=== PATIENT | male | born 1970 | race American Indian/Alaskan Native ===

== ENCOUNTER 2017-06-26 14:15 | Emergency (ER) | payer SELFPAY ==
[2017-06-26 14:30] VITALS: BP 133/87
[2017-06-26 15:05] LABS: Basophils % (Auto) 0.3 % (0.0-1.8); Eosinophils % (Auto) 4.9 % (0.0-4.3); Hematocrit 39.1 % (35.5-45.6); Hemoglobin 13.2 gm/dl (11.8-15.2); Mean Corpuscular HGB Conc 34 % (32-34); Mean Corpuscular Hemoglobin 29 pg (28-32); Mean Corpuscular Volume 85 fl (84-94); Platelet Count 346 K/mm3 (140-440); Red Blood Count 4.59 M/mm3 (3.65-5.03); White Blood Count 8.9 K/mm3 (4.5-11.0)
[2017-06-26 15:52] LABS: Alanine Aminotransferase 14 units/L (7-56); Albumin 3.9 g/dL (3.9-5); Albumin/Globulin Ratio 1.3 %; Alkaline Phosphatase 40 units/L (35-129); Anion Gap 15 mmol/L; BUN/Creatinine Ratio 13; Blood Urea Nitrogen 10 mg/dL (9-20); Carbon Dioxide 26 mmol/L (22-30); Chloride 102.6 mmol/L (98-107); Glucose 96 mg/dL (75-100); Lipase 32 units/L (13-60); Potassium 3.8 mmol/L (3.6-5.0); Sodium 140 mmol/L (137-145); Total Protein 6.9 g/dL (6.3-8.2)
--- NOTE | 2017-06-26 15:55 | Ultrasound Report ---
Testicular sonogram: History: Right Testicular pain. Findings: Right testis measures 4.9 x 2.4 x 2.9 cm. Uniform echogenicity with normal color flow. There is a cyst identified in the epididymis measuring 0.5 x 0.5 x 0.5 cm. Mild to moderate hydrocele. Left testes measures 4.5 x 2.2 x 2.9 cm. Uniform echogenicity with normal color flow. Normal epididymis. No mass. Moderate hydrocele. Impression: Cyst of the head of the right epididymis. Bilateral hydrocele.
[2017-06-26 16:57] LABS: Bilirubin,Urine NEG (Negative); Blood,Urine NEG (Negative); Ketones,Urine NEG (Negative); Leukocyte Esterase,Urine NEG (Negative); Mucus,Urine FEW /HPF; Nitrite,Urine NEG (Negative); Protein,Urine <15 mg/dL mg/dL (Negative); Urobilinogen,Urine < 2.0 mg/dL (<2.0); WBC,Urine < 1.0 /HPF (0.0-6.0)
== END 2017-06-26 21:40 | disposition left against medical advice (07) ==
LOC: ED 14:15
DX: R10.30 Lower abdominal pain, unspecified (principal); Z53.21 Procedure and treatment not carried out due to patient leaving prior to being seen by health care provider
CPT/HCPCS: 36415; 80053; 81001; 82962; 83690; 85025; 93975

== ENCOUNTER 2017-06-27 09:31 | Emergency (ER) | payer SELFPAY ==
[2017-06-27 09:54] VITALS: BP 125/77
== END 2017-06-27 10:15 | disposition left against medical advice (07) ==
LOC: ED 09:31
DX: R10.9 Unspecified abdominal pain (principal); Z53.21 Procedure and treatment not carried out due to patient leaving prior to being seen by health care provider

== ENCOUNTER 2020-03-23 12:54 | Emergency (ER) | payer SELFPAY ==
[2020-03-23 14:49] VITALS: BP 143/90
--- NOTE | 2020-03-23 17:58 | Emergency Department Report ---
Chief Complaint: Back Pain/Injury Stated Complaint: LOWER BACK PAIN - HPI History of Present Illness: 49-year-old obese male presents to the emergency room for acute on chronic back pain. Patient reports he has a history of degenerative disc disease of his lower back. Patient states he was walking down steps and try to avoid stepping on a toy when he almost fell down the steps. Patient denies any urinary or bowel incontinence. - Exam Vital Signs: Vital Signs 03/23/20 14:41 Temperature 98.2 F Pulse Rate 78 Respiratory 18 Rate Blood Pressure 143/90 O2 Sat by Pulse 98 Oximetry Physical Exam: Patient alert and oriented x3 no acute distress nontoxic in appearance and morbid obese. Patient has full range of back paraspinal tenderness to the right back no vertebral tenderness. Ambulatory without difficulties MSE screening note: Focused history and physical exam performed. Due to findings the following was ordered: 49-year-old obese male presents to the emergency room for acute on chronic back pain. Patient reports he has a history of degenerative disc disease of his lower back. Patient states he was walking down steps and try to avoid stepping on a toy when he almost fell down the steps.Patient denies any urinary or bowel incontinence. ED Disposition for MSE Disposition: Z-07 MED SCREENING EXAM-LEFT Is pt being admited?: No Does the pt Need Aspirin: No Condition: Stable Instructions: Chronic Back Pain (ED), Obesity (ED) Additional Instructions: Recommend Tylenol and ibuprofen follow-up with a primary care provider. Referrals: FILIPE GARCIA MD [Staff Physician] - 3-5 Days Forms: Work/School Release Form(ED)
== END 2020-03-23 18:00 | disposition left against medical advice (07) ==
LOC: ED 12:54
DX: M54.5 Low back pain (principal); Z53.21 Procedure and treatment not carried out due to patient leaving prior to being seen by health care provider

== ENCOUNTER 2021-02-11 09:34 | Emergency (ER) | payer SELFPAY ==
[2021-02-11] MEDS ORDERED: KETOROLAC 30 MG/1 ML INJ IM ONE (10:30)
--- NOTE | 2021-02-11 11:32 | Emergency Department Report ---
ED Abdominal Pain HPI - General Chief Complaint: Pain General Stated Complaint: GROIN PAIN Time Seen by Provider: 02/11/21 10:20 Source: patient Mode of arrival: Ambulatory Limitations: No Limitations - History of Present Illness Initial Comments: This is a 50-year-old male that states he was sitting on a chair which collapsed at work causing both his legs to abduct causing strain. The first episode occurred on Saturday. The patient complained of straining his left groin at that time but states that the pain subsided and he did not make a report to his employer. 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 He states that this again caused his left leg to be stressed away from the midline causing recurrent pain in his left groin area. He does not report a specific swollen area. He states that his testicle has not been painful and is unaffected by these events. Patient does not complain of any problems with his bowel movement or urinating. Does not complain of nausea or vomiting. He describes a dull ache or soreness in the left inguinal area which does not radiate. Patient is status post a laparoscopic right hernia repair with mesh in 2017. This was done at a [place] facility. He did not complain of pain in the right side of his abdomen physical exam until the physical exam reveals some tenderness on the right as well. He is noted to be morbidly obese. He is not on any current medications. MD Complaint: other (Inguinal as above) -: Gradual, days(s) (See above) Location: LUQ (Left inguinal) Radiation: none Migration to: no migration Severity: moderate Severity scale (0 -10): 8 Quality: aching, dull Consistency: intermittent Improves With: nothing Worsens With: movement Context: other (Previous surgery right inguinal hernia) Associated Symptoms: denies other symptoms - Related Data Previous Rx's Medication Instructions Recorded Last Taken Type Acetaminophen/Codeine [Tylenol 1 tab PO Q6H PRN #15 tab 01/27/14 Unknown Rx /Codeine # 3 tab] Cephalexin [Keflex] 500 mg PO QID #40 capsule 01/27/14 Unknown Rx Sulfamethoxazole/Trimethoprim 1 each PO BID #20 tablet 01/27/14 Unknown Rx [Bactrim DS TAB] hydrOXYzine HCL [Atarax] 25 mg PO Q6HR PRN #20 tablet 01/27/14 Unknown Rx Cyclobenzaprine [Flexeril] 10 mg PO Q8H PRN #21 tablet 07/31/15 Unknown Rx HYDROcodone/APAP 10-325 [[place] 1 each PO Q6HR PRN #16 tablet 07/31/15 Unknown Rx 10/325] Ibuprofen [Motrin 800 MG tab] 800 mg PO Q8HR #30 tablet 07/31/15 Unknown Rx traMADoL [Ultram] 50 mg PO Q6HR PRN #10 tablet 02/11/21 Unknown Rx Allergies Allergy/AdvReac Type Severity Reaction Status Date / Time No Known Allergies Allergy Verified 01/27/14 09:11 ED Review of Systems ROS: Stated complaint: GROIN PAIN Other details as noted in HPI Constitutional: denies: chills, fever Eyes: denies: eye pain, vision change ENT: denies: ear pain, throat pain Respiratory: denies: cough, shortness of breath Cardiovascular: denies: chest pain, palpitations Endocrine: no symptoms reported Gastrointestinal: as per HPI, abdominal pain. denies: nausea, vomiting, diarrhea Genitourinary: denies: urgency, dysuria Musculoskeletal: denies: back pain, arthralgia Skin: denies: rash, lesions Neurological: denies: headache, weakness, paresthesias Psychiatric: denies: anxiety, depression Hematological/Lymphatic: denies: easy bleeding, easy bruising ED Past Medical Hx - Past Medical History Previous Medical History?: Yes Additional medical history: right inquinal hernia pain - Surgical History Past Surgical History?: Yes Additional Surgical History: nasal bone surgery. Hernia repair @ right inquinal - Social History Smoking Status: Never Smoker Substance Use Type: None - Medications Home Medications: Home Medications Medication Instructions Recorded Confirmed Last Taken Type Acetaminophen/Codeine [Tylenol 1 tab PO Q6H PRN #15 tab 01/27/14 Unknown Rx /Codeine # 3 tab] Cephalexin [Keflex] 500 mg PO QID #40 capsule 01/27/14 Unknown Rx Sulfamethoxazole/Trimethoprim 1 each PO BID #20 tablet 01/27/14 Unknown Rx [Bactrim DS TAB] hydrOXYzine HCL [Atarax] 25 mg PO Q6HR PRN #20 tablet 01/27/14 Unknown Rx Cyclobenzaprine [Flexeril] 10 mg PO Q8H PRN #21 tablet 07/31/15 Unknown Rx HYDROcodone/APAP 10-325 [[place] 1 each PO Q6HR PRN #16 tablet 07/31/15 Unknown Rx 10/325] Ibuprofen [Motrin 800 MG tab] 800 mg PO Q8HR #30 tablet 07/31/15 Unknown Rx traMADoL [Ultram] 50 mg PO Q6HR PRN #10 tablet 02/11/21 Unknown Rx ED Physical Exam - General Limitations: Physical Limitation General appearance: alert, in no apparent distress - Head Head exam: Present: atraumatic, normocephalic - Eye Eye exam: Present: normal appearance. Absent: scleral icterus - ENT ENT exam: Present: mucous membranes moist - Neck Neck exam: Present: normal inspection - Respiratory Respiratory exam: Present: normal lung sounds bilaterally. Absent: respiratory distress - Cardiovascular Cardiovascular Exam: Present: regular rate, normal rhythm. Absent: systolic murmur, diastolic murmur, rubs, gallop - GI/Abdominal GI/Abdominal exam: Present: soft, tenderness (There was tenderness in the left inguinal area. There was also some tenderness in the right lower quadrant and appeared to be associated with a bulge but no evidence of incarceration or apparent bowel), normal bowel sounds, other (Morbidly obese). Absent: distended, guarding, rebound, rigid, organomegaly, bruit, pulsatile mass - Rectal Rectal exam: Present: deferred - Extremities Exam Extremities exam: Present: normal inspection - Back Exam Back exam: Present: normal inspection - Neurological Exam Neurological exam: Present: alert, oriented X3, CN II-XII intact. Absent: motor sensory deficit - Psychiatric Psychiatric exam: Present: normal affect, normal mood - Skin Skin exam: Present: warm, dry, intact, normal color. Absent: rash ED Course Vital Signs 02/11/21 09:40 Temperature 98.1 F Pulse Rate 92 H Respiratory 20 Rate Blood Pressure 147/94 O2 Sat by Pulse 98 Oximetry - Reevaluation(s) Reevaluation #1: Patient informed the CT findings. He should follow-up with company physician. I am uncertain as to whether he did pass a kidney stone as suggested by the radiologist as it did not clinically correlate with the patient's history. 02/11/21 13:27 Critical care attestation.: If time is entered above; I have spent that time in minutes in the direct care of this critically ill patient, excluding procedure time. ED Disposition Clinical Impression: Left inguinal pain Disposition: DC-01 TO HOME OR SELFCARE Is pt being admited?: No Does the pt Need Aspirin: No Condition: Stable Instructions: Muscle Cramps and Spasms, Kidney Stones, [id number] Additional Instructions: Wirt-[id number] medication would be recommended. If ineffective, Rx for Ultram. Follow-up with your company physician. Radiologist believes that you might have passed a kidney stone. Your blood pressure was somewhat elevated. Medication may be required. Follow- [facility] with the [facility] or with a primary care physician for that. Prescriptions: traMADoL [Ultram] 50 mg PO Q6HR PRN #10 tablet PRN Reason: Pain Referrals: PRIMARY CARE, [Primary Care Provider] - 3-5 Days Workmen's Comp., physician [Other] - 3-5 Days [facility] [Provider Group] - 2-3 Days
--- NOTE | 2021-02-11 12:45 | Cat Scan Report ---
CT ABDOMEN AND PELVIS WITHOUT IV CONTRAST INDICATION: LEFT Inguinal pain / possible hernia, RIGHT mesh, herniorhaphy. COMPARISON: None available. TECHNIQUE: All CT scans at this facility use dose modulation, automated exposure control, iterative reconstructi on or weight based dosing, when appropriate, to reduce radiation dose to as low as reasonably achieva ble. FINDINGS: Lung Bases: No significant abnormality. Skeletal System: No acute abnormality. ABDOMEN: Liver: No significant abnormality. Gallbladder: No significant abnormality. Bile Ducts: No significant abnormality. Pancreas: No significant abnormality. Spleen: No significant abnormality. Adrenals: No significant abnormality. Right Kidney: No significant abnormality. Left Kidney: No significant abnormality. Upper GI tract: No significant abnormality. Lymph Nodes: No significant adenopathy. Aorta: No significant abnormality. Additional Findings: No significant abnormality. PELVIS: Colon: No acute abnormality. Urinary Bladder and Distal Ureters: There is a punctate 3 mm calcification in the bladder lumen left of midline near the left ureteral orifice (series 2 image 175). Appendix: No significant abnormality. Lymph Nodes: No significant adenopathy. Additional Findings: Prior hernia repair changes are noted at the right groin. There is no left groin hernia. IMPRESSION: 1. 2-3 mm calcification in the bladder lumen near the left ureteral orifice is likely a stone that h as recently passed from the distal left ureter into the bladder. There is no left hydroureteronephros is. No intrarenal stones. 2. Incidental findings, as above. Signer Name: Giovani Chicas MD Signed: 02/11/2021 12:40 PM Workstation Name: [id number]
[2021-02-11 13:46] VITALS: BP 126/79
== END 2021-02-11 13:47 | disposition home or self-care (01) ==
LOC: ED 09:34
DX: R10.32 Left lower quadrant pain (principal); Z98.890 Other specified postprocedural states; Z79.899 Other long term (current) drug therapy
CPT/HCPCS: 74176; 96372; 99283; J1885

== ENCOUNTER 2021-05-28 21:15 | Emergency (ER) | payer SELFPAY ==
[2021-05-28 23:10] VITALS: BP 124/84
[2021-05-28] MEDS ORDERED: IBUPROFEN 600 MG TAB PO ONE (23:37)
--- NOTE | 2021-05-28 23:38 | Emergency Department Report ---
ED Extremity Problem HPI - General Chief complaint: Extremity Injury, Lower Stated complaint: L KNEE PAIN AND SWELLING Time Seen by Provider: 05/28/21 23:14 Source: patient Mode of arrival: Ambulatory Limitations: No Limitations - History of Present Illness Initial comments: 50-year-old male presents to the ER today with complaints of left knee pain. Brian herson states that his pain started yesterday. He reports pain mainly to the anterior aspect of his left knee with associated swelling. He denies any particular injury but states that he does do lots of standing and walking at work. Patient reports increased pain with movement of the knee and with weightbearing. He reports no bruising, or erythema. He states that his never had issues with his knee in the past. He has not taken anything for the pain since it started. MD Complaint: joint swelling, joint paint -: Gradual, days(s) (1) - Related Data Previous Rx's Medication Instructions Recorded Last Taken Type Ibuprofen [Motrin 800 MG tab] 800 mg PO Q8HR #30 tablet 05/29/21 Unknown Rx Allergies Allergy/AdvReac Type Severity Reaction Status Date / Time No Known Allergies Allergy Verified 01/27/14 09:11 ED Review of Systems ROS: Stated complaint: L KNEE PAIN AND SWELLING Other details as noted in HPI Comment: All other systems reviewed and negative Respiratory: denies: cough, shortness of breath, wheezing Cardiovascular: denies: chest pain, palpitations Gastrointestinal: denies: abdominal pain, nausea, diarrhea, constipation, hematemesis, hematochezia Musculoskeletal: joint swelling, arthralgia Skin: denies: rash, lesions, change in color, change in hair/nails, pruritus Neurological: denies: headache, weakness, paresthesias, confusion, abnormal gait, vertigo Psychiatric: denies: anxiety, depression, auditory hallucinations, visual hallucinations, homicidal thoughts, suicidal thoughts Hematological/Lymphatic: denies: easy bleeding, easy bruising ED Past Medical Hx - Past Medical History Previous Medical History?: Yes Additional medical history: right inquinal hernia pain - Surgical History Past Surgical History?: Yes Additional Surgical History: nasal bone surgery. Hernia repair @ right inquinal - Social History Smoking Status: Never Smoker Substance Use Type: None - Medications Home Medications: Home Medications Medication Instructions Recorded Confirmed Last Taken Type Ibuprofen [Motrin 800 MG tab] 800 mg PO Q8HR #30 tablet 05/29/21 Unknown Rx ED Physical Exam - General Limitations: No Limitations General appearance: alert, in no apparent distress, obese - Head Head exam: Present: atraumatic, normocephalic, normal inspection - Eye Eye exam: Present: normal appearance, PERRL, EOMI Pupils: Present: normal accommodation - Respiratory Respiratory exam: Absent: respiratory distress - Cardiovascular Cardiovascular Exam: Present: regular rate - Expanded Lower Extremity Exam Left Knee exam: Present: full ROM (but with some pain ), tenderness (anterior, medial and lat knee), full knee extension. Absent: swelling, abrasion, laceration, ecchymosis, deformity, crepidus, dislocation, erythema, effusion Neuro vascular tendon exam: Present: no vascular compromise. Absent: motor deficit, sensory deficit, tendon deficit Gait: Positive: observed and normal - Neurological Exam Neurological exam: Present: alert, oriented X3, CN II-XII intact - Psychiatric Psychiatric exam: Present: normal affect, normal mood - Skin Skin exam: Present: intact ED Course Vital Signs 05/28/21 23:04 Temperature 98.4 F Pulse Rate 79 Respiratory 18 Rate Blood Pressure 124/84 O2 Sat by Pulse 98 Oximetry ED Medical Decision Making - Radiology Data Radiology results: report reviewed Patient: ALIYAH MÁRQUEZ MR#: [id number] : 1970 Acct:[id number] Age/Sex: 50 / M ADM Date: 05/28/21 Loc: ED Attending Dr: Ordering Physician: EUGENIA MCFARLANE Date of Service: 05/28/21 Procedure(s): XR knee 1-2V LT Accession Number(s): [id number] cc: EUGENIA MCFARLANE Fluoro Time In Minutes: Left knee radiograph, 2 views HISTORY: Pain COMPARISON: None FINDINGS: No acute fracture or malalignment. Mild tricompartmental osteoarthritis, preferentially involving the medial compartment. No sizable joint effusion. Nonspecific mild anterior soft tissue swelling. Signer Name: Kiarra Johnson MD Signed: 05/29/2021 12:13 AM Workstation Name: [id number] Transcribed By: RENUKA Dictated By: KIARRA JOHNSON MD Electronically Authenticated By: KIARRA JOHNSON MD Signed Date/Time: 05/29/2112 DD/ TD/TT: - Medical Decision Making 0038: X-ray shows mild arthritis, and nonspecific mild swelling anterior aspect of the knee but otherwise nothing else acute. Physical exam does not suggest acute gout, septic joint, cellulitis, bursitis or any other concerning emergent conditions warranting additional testing at this time. Discussed x-ray results, diagnosis and treatment plan with patient. Recommend follow-up with print support specialist. Patient expressed understanding of all instructions and agree with plan. Patient was stable at time of discharge. Critical care attestation.: If time is entered above; I have spent that time in minutes in the direct care of this critically ill patient, excluding procedure time. ED Disposition Clinical Impression: Arthritis of knee Disposition: HOME / SELF CARE / HOMELESS Is pt being admited?: No Does the pt Need Aspirin: No Condition: Stable Instructions: Arthritis, [id number] Additional Instructions: I recommend that you take the ibuprofen as prescribed to help with pain. Follow-up with print support specialist listed on your discharge instructions next week. Return to the ER if your symptoms changes or worsens in any way. Prescriptions: Ibuprofen [Motrin 800 MG tab] 800 mg PO Q8HR #30 tablet Referrals: SAVANNA TOBIN MD [Staff Physician] - 7-10 days Forms: Work/School Release Form(ED) Time of Disposition: 00:32 Print Language: MOROCCAN
--- NOTE | 2021-05-29 00:18 | XRay Report ---
Left knee radiograph, 2 views HISTORY: Pain COMPARISON: None FINDINGS: No acute fracture or malalignment. Mild tricompartmental osteoarthritis, preferentially inv olving the medial compartment. No sizable joint effusion. Nonspecific mild anterior soft tissue swell ing. Signer Name: George Johnson MD Signed: 05/29/2021 12:13 AM Workstation Name: [id number]
== END 2021-05-29 00:56 | disposition home or self-care (01) ==
LOC: ED 21:15
DX: M13.862 Other specified arthritis, left knee (principal); K40.90 Unilateral inguinal hernia, without obstruction or gangrene, not specified as recurrent; Z98.890 Other specified postprocedural states
CPT/HCPCS: 99283